=== PATIENT | male | born 1960 | race Caucasian/White ===

== ENCOUNTER → 2021-01-14 | Outpatient (CLI) | payer OTHER ==
[2021-01-14 12:01] LABS: Hematocrit 48.5 % (37.0-53.0); Hemoglobin 16.4 g/dL (13.5-17.5); Mean Corpuscular HGB 28.9 pg (26.0-34.0); Mean Corpuscular HGB Conc 33.8 g/dL (31.5-36.5); Mean Corpuscular Volume 85 fL (80-100); Mean Platelet Volume 9.8 fL (9.1-12.4); Platelet Count 248 K/mm3 (150-400); RDW Coefficient Variation 13.5 % (11.7-14.2); RDW Standard Deviation 42.1 fL (35.1-46.3); Red Blood Cell Count 5.68 M/mm3 (4.30-5.90); White Blood Cell Count 5.68 K/mm3 (4.00-11.30)
[2021-01-14 12:51] LABS: BAND PERCENT MAN 8 % (0-8); BASOPHILS ABSOLUTE MAN 0.05 K/mm3 (0.00-0.23); BASOPHILS PERCENT MAN 1 % (0-2); EOSINOPHILS ABSOLUTE MAN 0.11 K/mm3 (0.00-0.68); EOSINOPHILS PERCENT MAN 2 % (0-6); LYMPHOCYTES ABSOLUTE MAN 0.96 K/mm3 (0.84-5.20); LYMPHOCYTES PERCENT MAN 17 % (21-46); MONOCYTES ABSOLUTE MAN 0.39 K/mm3 (0.16-1.47); MONOCYTES PERCENT MAN 7 % (4-13); NEUTROPHILS ABSOLUTE MAN 4.14 K/mm3 (1.96-9.15); SEG NEUTROPHILS PERCENT MAN 65 % (41-73); TOTAL CELLS COUNTED 100
[2021-01-14 12:55] LABS: Alanine Aminotransfer (ALT/SGP 195 U/L (12-78); Albumin, Blood 2.5 g/dL (3.4-5.0); Albumin/Globulin Ratio 0.5 (0.8-1.8); Alk Phos 84 U/L (50-136); Anion Gap 6 mmol/L (6-16); Aspartate Aminotrans (AST/SGOT 136 U/L (12-37); Bilirubin, Total 0.9 mg/dL (0.1-1.0); Blood Urea Nitrogen 20 mg/dL (8-24); Bun/Creatinine Ratio 16.9 (12.0-20.0); CO2, Blood 28 mmol/L (21-32); Chloride, Blood 97 mmol/L (98-108); Creatinine, Blood 1.18 mg/dL (0.60-1.20); Globulin, Blood 4.7 g/dL (2.2-4.0); Glomerular Filtration Rate >60 (60-); Glucose, Blood 106 mg/dL (70-99); Potassium, Blood 3.9 mmol/L (3.5-5.5); Sodium, Blood 131 mmol/L (136-145); Total Protein, Blood 7.2 g/dL (6.4-8.2); Troponin I <0.015 ng/mL (0.000-0.040)
[2021-01-15 08:11] LABS: HBSAG SCREEN Negative (Negative); HEP A AB, IGM Negative (Negative); HEP B CORE AB, IGM Negative (Negative); HEP C VIRUS AB <0.1 (0.0-0.9)
== END | disposition home or self-care (01) ==
LOC: LAB SHORT 11:57
PROVIDERS: Physician Assistant
DX: R07.9 Chest pain, unspecified (principal); R94.5 Abnormal results of liver function studies
CPT/HCPCS: 80053; 80074; 83690; 84484; 85025

== ENCOUNTER 2025-06-03 15:47 | Inpatient (IN) | payer OTHER ==
[2025-06-03] VITALS (32 sets, daily range): BP systolic 75–96; BP diastolic 48–67
[~2025-06-03] VITALS: Ht 188 cm; Wt 67.3 kg
[2025-06-03] MEDS ORDERED: Ondansetron HCl 2 MG / ML 2ML Vial IV PRN (18:50)
[2025-06-03] MEDS ORDERED: FLU VACC TS2025-26(6MOS UP)/PF 45 MCG/0.5 ML SYRINGE IM SCH (18:50)
[2025-06-03] MEDS ORDERED: NS 1,000 ML IV SCH ×3 (19:00→20:55)
[2025-06-03] MEDS ORDERED: Piperacillin/Tazobactam Sod 4.5 GM in NS 100 ML IV ONE (19:15)
[2025-06-03] MEDS ORDERED: Albumin (Human) 25gm/100ml 100 ML IV ONE (19:15)
[2025-06-03 19:23] LABS: Hematocrit 20.1 % (37.0-53.0); Hemoglobin 6.2 g/dL (13.5-17.5)
[2025-06-03 19:32] LABS: IMMATURE RETIC FRACTION 15.1 % (2.3-16.0); RETIC HGB EQUIVALENT 29.6 pg (28.20-36.60); RETICULOCYTE ABSOLUTE 0.0345 M/mm3 (0.0200-0.1100); RETICULOCYTE COUNT PERCENT 1.45 % (0.50-2.50)
[2025-06-03 20:01] LABS: Prothrombin Time Results 15.1 Sec (9.7-11.5)
[2025-06-03 20:15] LABS: Ferritin, Serum 874.0 ng/mL (26-388); Total Iron Binding Capacity 166.0 ug/dL (250-450)
[2025-06-03 20:17] LABS: Magnesium, Blood 2.0 mg/dL (1.6-2.4); Phosphorus, Blood 2.0 mg/dL (2.5-4.9)
[2025-06-03] MEDS ORDERED: NS 500 ML IV SCH (20:20)
[2025-06-03 20:42] LABS: Influenza A, PCR NEGATIVE (NEGATIVE); Influenza B, PCR NEGATIVE (NEGATIVE); Resp Syncytial Virus, PCR NEGATIVE (NEGATIVE); SARS-Cov-2 (COVID-19) PCR, MMC NEGATIVE (NEGATIVE)
[2025-06-04] VITALS (61 sets, daily range): BP systolic 84–102; BP diastolic 51–71
[2025-06-04] MEDS ORDERED: Piperacillin/Tazobactam Sod 4.5 GM in NS 100 ML IV SCH (00:19)
[2025-06-04 00:58] LABS: Hematocrit 22.5 % (37.0-53.0); Hemoglobin 7.0 g/dL (13.5-17.5)
[2025-06-04 03:25] LABS: BASOPHILS ABSOLUTE AUTO 0.03 K/mm3 (0.00-0.23); BASOPHILS PERCENT AUTO 1 % (0-2); EOSINOPHILS ABSOLUTE AUTO 0.04 K/mm3 (0.00-0.68); EOSINOPHILS PERCENT AUTO 1 % (0-6); Hematocrit 21.3 % (37.0-53.0); Hemoglobin 6.7 g/dL (13.5-17.5); Mean Corpuscular HGB Conc 31.5 g/dL (31.5-36.5); Mean Corpuscular Volume 84 fL (80-100); NRBC ABSOLUTE 0.00 K/mm3 (0.00-0.02); NRBC Auto 0.0 /100 WBC (0.0-0.2); Platelet Count 59 K/mm3 (150-400); RDW Coefficient Variation 18.8 % (11.7-14.2); RDW Standard Deviation 57.0 fL (35.1-46.3)
[2025-06-04 03:29] LABS: IMMATURE GRAN ABSOLUTE AUTO 0.04 K/mm3 (0.00-0.10); IMMATURE GRAN PERCENT AUTO 1 % (0-1); LYMPHOCYTES ABSOLUTE AUTO 1.28 K/mm3 (0.84-5.20); LYMPHOCYTES PERCENT AUTO 29 % (21-46); MONOCYTES ABSOLUTE AUTO 0.20 K/mm3 (0.16-1.47); MONOCYTES PERCENT AUTO 5 % (4-13); NEUTROPHILS ABSOLUTE AUTO 2.86 K/mm3 (1.96-9.15); NEUTROPHILS PERCENT AUTO 64 % (41-73)
[2025-06-04 03:39] LABS: Alanine Aminotransfer (ALT/SGP 13.0 U/L (12-78); Albumin, Blood 1.9 g/dL (3.4-5.0); Albumin/Globulin Ratio 0.5 (0.8-1.8); Anion Gap 14.0 mmol/L (3-11); Aspartate Aminotrans (AST/SGOT 177.0 U/L (12-37); Bilirubin, Total 2.2 mg/dL (0.1-1.0); Blood Urea Nitrogen 19.0 mg/dL (8-24); CO2, Blood 22.0 mmol/L (21-32); Calcium, Blood 7.9 mg/dL (8.5-10.1); Chloride, Blood 100.0 mmol/L (98-108); Creatinine, Blood 0.75 mg/dL (0.60-1.20); Globulin, Blood 3.6 g/dL (2.2-4.0); Glucose, Blood 78.0 mg/dL (70-99); Potassium, Blood 3.6 mmol/L (3.5-5.5); Sodium, Blood 132.0 mmol/L (136-145); Total Protein, Blood 5.5 g/dL (6.4-8.2)
--- NOTE | 2025-06-04 06:02 | NUR ---
SHIFT SUMMARY: PT CAME TO THE ICU RATHER THAN PCU DUE TO LOW BLOOD PRESSURES. PT BLOOD PRESSURE REMAINS SOFT BUT MAPS ARE ABOVE 65. HR IN 80S, SINUS. PT HAS NOT EXHIBITED ANY RESPIRATORY DISTRESS OR DYSPNEA, SPO2 HAS BEEN >95% AND PT REMAINS ON ROOM AIR. HE HAS A PERSISTENT COUGH, SOME BLOOD NOTED IN SPUTUM. PT DENIES PAIN, EDORSES FATIGUE JUST FEELING GENERALLY UNWELL. REMAINS A&OX4 RESPONDS APPROPRIATELY AND MAKES NEEDS KNOWN.
[2025-06-04 09:22] LABS: Hematocrit 24.1 % (37.0-53.0); Hemoglobin 7.7 g/dL (13.5-17.5)
[2025-06-04 10:30] LABS: Prothrombin Time Results 15.1 Sec (9.7-11.5)
[2025-06-04 11:07] LABS: Automated BF WBC Count 0.066 K/mm3 (0-999)
[2025-06-04 11:38] LABS: Glucose, Body Fluid 83 mg/dL
[2025-06-04 11:42] LABS: Lactate Dehydrogenase, Body Fl 187 U/L
[2025-06-04 11:43] LABS: Albumin, Body Fluid 0.7 g/dL
[2025-06-04 12:00] LABS: RBC Count, Body Fluid 57 /mm3 (0-0)
[2025-06-04 12:19] LABS: Lymphocytes, Fluid 9.0 % (0.0-18.0); Monocytes/Mononuclear, Fluid 79.0 % (0.0-50.0); Neutrophils, Fluid 6.0 % (0.0-25.0); Total Cell Count, Body Fluid 100
[2025-06-04 12:20] LABS: Color, Body Fluid L Yellow (None-Yellow)
[2025-06-04 14:08] LABS: Source, Urine Clean Catch
[2025-06-04] MEDS ORDERED: NS 1,000 ML IV SCH (14:20)
[2025-06-04 14:42] LABS: Color, Urine Amber (P-Yellow); Glucose Qualitative, Urine Neg (Neg); Ketones, Urine 2+ (Neg); Leukocyte Esterase, Urine 1+ (Neg); Protein, Urine 2+ (Neg); Specific Gravity, Urine 1.015 (1.003-1.022); Urobilinogen, Urine 2+ (Normal)
[2025-06-04 15:24] LABS: Bilirubin, Urine 1+ (Neg)
[2025-06-04] MEDS ORDERED: Petrolatum/Mineral Oil/Lanolin 1 APPLIC/50 GM Tube TOP PRN (15:45)
--- NOTE | 2025-06-04 17:09 | NUR ---
SPOKE WITH PT'S NEPHEW KAREEM. HE STATES HE WAS TOLD BY THE PATIENT'S DAUGHTER THAT THE PROGNOSIS IS "SERIOUS". HE STATES HE'S COMING TO SEE PT TOMORROW AROUND NOON, AND ASKED THAT THIS PC RN BE PRESENT FOR GOALS OF CARE.
--- NOTE | 2025-06-04 17:36 | NUR ---
SHIFT SUMMARY PT A&OX4 T/O SHIFT. PT FOLLOWS COMMANDS, ANSWERS QUESTIONS APPROPRIATELY, AND USES CALL LIGHT TO MAKES NEEDS KNOWN. PT IS ON RA, SPO2>92%. PT LUNG SOUNDS COARSE T/O, ATELECTASIS IN BLL. PLEURAL EFFUSION GREATER IN LLL, THORACENTESIS PERFORMED APPROX AT 1030 WITH OUPUT OF 300MLS. PUNCTURE SIGHT ON LEFT SIDE POSTERIOR BACK, BANDAGE IN PLACE AND WNL. PT HAS OCCASIONAL PRODUCTIVE COUGH, MODERATE AMOUNT OF BROWN/BLOOD-TINGED SPUTUM. PT IN NSR WITH PVCS, MAP 63-70S, SBP 88-90S MAJORITY OF SHIFT. NEW RX OF MIDODRINE STARTED TODAY AT 1300. PT DENIES ABD PAIN, NO BOWEL MOVEMENT TODAY. PT VOIDS INTO URINAL. PT HAS SCATTERED INJURIES ON R KNEE/ROUSE AND ELBOW D/T FALL PREVIOUS FROM ADMISSION. PHOTOS IN CHART. BLOOD PRODUCT FINISHED THIS AM, REPEAT H&H IMPROVED. DISCUSSED CT FINDINGS WITH PT THIS AM, PALLIATIVE AND CARE MANAGEMENT CONSULTED. DAUGHTER AT BEDSIDE, PT DOES NOT WANT TO SHARE DETAILS ABOUT MEDICAL STATUS, OKAY WITH SAYING THAT "THEY ARE STILL RUNNING TESTS AND NOTHING IS CONCLUSIVE AT THIS POINT." CALL LIGHT WITHIN REACH WITH NO NEEDS EXPRESSED AT THIS TIME.
--- NOTE | 2025-06-04 19:42 | NUR ---
ASSUMPTION OF CARE: ASSUMED CARE OF PT AT 1910. PT ALERT AND ORIENTED TO ALL. FOLLOWS DIRECTION AND MAKES NEEDS KNOWN ALTHOUGH WEAK T/O. PT ON RA WITH SPO2 >94% DENIES SOB. LUNGS CLEAR/DIM T/O. INTERMITTENT COUGH NOTED. ON ELECTRICAL PLUMBING SUPERVISOR. SR WITH HR 80'S WITH FREQUENT PVC'S. SBP 80'S, WITH MAP >65. DENIES CP. ABLE TO TOLERATE PO INTAKE ALTHOUGH HAS DECREASED APPETITE. USES THE URINAL IND, MINIMAL URINE OUTPUT STATED FROM DAYSHIFT RN. NS AT 75 ML/HR THROUGH RAC PIV. LAC/LH PIV INTACT AND SALINE LOCKED. PT MOVING AROUND NEEDED IN BED WITH MINIMAL ASSIST. BED LOCKED, CALL LIGHT IN REACH.
[2025-06-05] VITALS (37 sets, daily range): BP systolic 85–107; BP diastolic 40–94
--- NOTE | 2025-06-05 02:19 | NUR ---
ASSUMED CARE OF PATIENT. PATIENT IS ALERT AND ORIENTED X4. ABLE TO ASSIST WITH TURNING. LS CLEAR TO DIMINISHED, SP02 100% ON RA, DENIES SOB. HR SR 79, FREQUENT PVCs, BP STABLE. DENIES CP/PRESSURE. PATIENT ABLE TO USE URINAL. ASSISTED WITH TURNS. CALL LIGHT IN REACH
[2025-06-05 03:47] LABS: BASOPHILS ABSOLUTE AUTO 0.06 K/mm3 (0.00-0.23); BASOPHILS PERCENT AUTO 1 % (0-2); EOSINOPHILS ABSOLUTE AUTO 0.06 K/mm3 (0.00-0.68); EOSINOPHILS PERCENT AUTO 1 % (0-6); Hematocrit 27.2 % (37.0-53.0); Hemoglobin 8.4 g/dL (13.5-17.5); Mean Corpuscular HGB Conc 30.9 g/dL (31.5-36.5); Mean Corpuscular Volume 88 fL (80-100); NRBC ABSOLUTE 0.04 K/mm3 (0.00-0.02); NRBC Auto 0.7 /100 WBC (0.0-0.2); Platelet Count 52 K/mm3 (150-400); RDW Coefficient Variation 19.8 % (11.7-14.2); RDW Standard Deviation 63.2 fL (35.1-46.3)
[2025-06-05 03:48] LABS: IMMATURE GRAN ABSOLUTE AUTO 0.07 K/mm3 (0.00-0.10); IMMATURE GRAN PERCENT AUTO 1 % (0-1); LYMPHOCYTES ABSOLUTE AUTO 1.55 K/mm3 (0.84-5.20); LYMPHOCYTES PERCENT AUTO 29 % (21-46); MONOCYTES ABSOLUTE AUTO 0.49 K/mm3 (0.16-1.47); MONOCYTES PERCENT AUTO 9 % (4-13); NEUTROPHILS ABSOLUTE AUTO 3.20 K/mm3 (1.96-9.15); NEUTROPHILS PERCENT AUTO 59 % (41-73)
[2025-06-05 04:04] LABS: Alanine Aminotransfer (ALT/SGP 12.0 U/L (12-78); Albumin, Blood 1.8 g/dL (3.4-5.0); Albumin/Globulin Ratio 0.4 (0.8-1.8); Anion Gap 17.0 mmol/L (3-11); Aspartate Aminotrans (AST/SGOT 191.0 U/L (12-37); Bilirubin, Total 2.2 mg/dL (0.1-1.0); Blood Urea Nitrogen 19.0 mg/dL (8-24); CO2, Blood 18.0 mmol/L (21-32); Calcium, Blood 8.4 mg/dL (8.5-10.1); Chloride, Blood 101.0 mmol/L (98-108); Creatinine, Blood 0.92 mg/dL (0.60-1.20); Globulin, Blood 4.1 g/dL (2.2-4.0); Glucose, Blood 72.0 mg/dL (70-99); Potassium, Blood 3.5 mmol/L (3.5-5.5); Sodium, Blood 132.0 mmol/L (136-145); Total Protein, Blood 5.9 g/dL (6.4-8.2)
--- NOTE | 2025-06-05 06:05 | NUR ---
SHIFT SUMMARY NO ACUTE CHANGES SINCE ASSUMING CARE OF PATIENT. REMAINS ALERT AND ORIENTED X4. SP02 98% ON RA. HR SR 70s WITH FREQUENT PVCs. BP STABLE DENIES CP/PRESSURE. REPOSITIONED Q2 HOURS. PATIENT ABLE TO USE URINAL. CALL LIGHT IN REACH
--- NOTE | 2025-06-05 07:22 | NUR ---
ASSUMPTION OF CARE RECEIVED REPORT FROM [facility] NURSE. PT IS A&OX4, FOLLOWS COMMANDS AND ANSWERS QUESTIONS APPROPRIATELY. PT IS ON RA, SPO2>92%. PT IN NSR WITH FREQUENT PVCS. MAP >65. SBP IN 90S. PT REPORTS NAUSEA WHEN ATTEMPTING TO EAT, PRN MEDS IN EMAR. PT VOIDS INTO URINAL. PT HAS THREE PIVS, WNL. PT HAS CALL LIGHT WITHIN REACH AND NO NEEDS EXPRESSED AT THIS TIME.
[2025-06-05] MEDS ORDERED: Lidocaine 2% Viscous Soln 20 ML,Nystatin 100,000 Unit/ml Susp 20 ML,Mag Hydrox/Al Hydro... MT PRN (08:55)
[2025-06-05] MEDS ORDERED: Albumin (Human) 25gm/100ml 100 ML IV SCH (09:00)
[2025-06-05] MEDS ORDERED: Metoclopramide HCl 5MG / ML 2ML Vial IV PRN (09:00)
[2025-06-05] MEDS ORDERED: Multivitamins 1 Tab PO SCH (16:20)
[2025-06-05] MEDS ORDERED: Furosemide 10 MG / ML 2ML Vial IV SCH (17:00)
--- NOTE | 2025-06-05 18:10 | NUR ---
SHIFT SUMMARY PT IS A&OX4 T/O SHIFT, ANSWERS QUESTIONS AND USES CALL LIGHT APPROPRIATELY. PT ON RA, SPO2>92%. DIMINISHED COARSE BILATERAL LOWER LOBES. PT DENIES SOB BUT NO IMPROVEMENTS AFTER THORACENTESIS ON 06/04. PT COUGHING OCCASIONALLY WITH MODERATE AMOUNTS OF SPUTUM, BROWN/BLOOD-TINGED. PT HR IN 70-90S T/O SHIFT, MAP >65 WITH SBP IN 90-100S MAJORITY OF SHIFT. PT DENIES CHEST PAIN/PRESSURE T/O SHIFT. PT REPORTED NAUSEA T/O SHIFT, PRN MEDS IN EMAR. PT HAD NO SOLID FOOD INTAKE TODAY, HOP TRAINER CONSULTED. PT DRANK SOME CLEAR LIQUID ENSURE. MILD ASCITES IN ABD. PT USES URINAL TO VOID. PT HAS +2 EDEMA IN BLL AND BILATERAL THIGHS/HIPS. INCREASED JVD AT 1600. REPEAT LACTIC ACID WAS 6.4, DR NOTIFIED. REPEAT LABS IN AM PER . PT HAS PREVENTATIVE MEPILEXUS ON SPINE AND COCCYX D/T BLANCHABLE REDNESS AND CACHEXIA. PT NOTIFIED THAT NEPHEW, "BLUE" WAS ALLOWED MEDICAL INFORMATION BUT NO ONE ELSE. OTHER FAMILY WAS TO BE TOLD THAT THEY ARE STILL RUNNING TESTS AT THIS TIME. CALL LIGHT WITHIN REACH WITH NO NEEDS EXPRESSED AT THIS TIME. PT PLANS TO HAVE FAMILY MEETING WITH FAMILY ONCE DAUGHTER FROM [place] ARRIVES INTO [facility], PT CONTACTED HER UNSURE OF EXACT TIME/DATE OF HER ARRIVAL.
--- NOTE | 2025-06-05 21:07 | NUR ---
ASSUMPTION OF CARE: ASSUMED CARE AT START OF SHIFT (1899). REPORT RECEIVED FROM DAY SHIFT RN. PT IS DOING WELL AND RESTING IN BED. PT IS ALER AND FOLLOWING COMMANDS. PT DENIES ANY PAIN, CP, OR SOB AT THIS TIME. LUNG SOUNDS ARE COARSE, ON RA WITH SPO2 >95%. SINUS RYTHM, SBP:90-100'S MAP >65 HR:90'S. IV: PERIPHERAL IN LAC, RAC, L HAND. PI ABLE TO STAND VIA 2-PERSON ASSIT AND USE BEDSIDE COMMODE. LINES AND CORDS PLACED OUT OG REACH. CALL LIGHT PLACED WITHIN REACH.
[2025-06-06] VITALS (30 sets, daily range): BP systolic 85–116; BP diastolic 56–82
[2025-06-06 06:01] LABS: Hematocrit 24.6 % (37.0-53.0); Hemoglobin 7.8 g/dL (13.5-17.5); Mean Corpuscular HGB Conc 31.7 g/dL (31.5-36.5); Mean Corpuscular Volume 86 fL (80-100); NRBC ABSOLUTE 0.05 K/mm3 (0.00-0.02); NRBC Auto 0.8 /100 WBC (0.0-0.2); RDW Coefficient Variation 19.9 % (11.7-14.2); RDW Standard Deviation 61.8 fL (35.1-46.3)
[2025-06-06 06:24] LABS: Platelet Count 45 K/mm3 (150-400)
[2025-06-06 06:25] LABS: Alanine Aminotransfer (ALT/SGP 19.0 U/L (12-78); Albumin, Blood 2.2 g/dL (3.4-5.0); Albumin/Globulin Ratio 0.6 (0.8-1.8); Anion Gap 16.0 mmol/L (3-11); Aspartate Aminotrans (AST/SGOT 282.0 U/L (12-37); Bilirubin, Total 2.6 mg/dL (0.1-1.0); Blood Urea Nitrogen 22.0 mg/dL (8-24); CO2, Blood 18.0 mmol/L (21-32); Calcium, Blood 8.2 mg/dL (8.5-10.1); Chloride, Blood 102.0 mmol/L (98-108); Creatinine, Blood 1.0 mg/dL (0.60-1.20); Globulin, Blood 3.6 g/dL (2.2-4.0); Glucose, Blood 78.0 mg/dL (70-99); Magnesium, Blood 2.1 mg/dL (1.6-2.4); Phosphorus, Blood 2.2 mg/dL (2.5-4.9); Potassium, Blood 3.6 mmol/L (3.5-5.5); Sodium, Blood 132.0 mmol/L (136-145); Total Protein, Blood 5.8 g/dL (6.4-8.2)
--- NOTE | 2025-06-06 06:32 | NUR ---
SHIFT SUMMARY: PT IS DOING WELL AND RESTING IN BED. PT WAS ABLE TO SLEEP MOST OF THE NIGHT. VITAL SIGNS REMAIN STABLE. PT HAS OCCASIONAL COUGHING EPISODE AND IS PRODUCING BLOOD TINGED SPUTUM. DURING THE SHIFT PT WAS CALLING TO USE URINAL EVERY HOUR BUT WAS ONLY ABLE TO BETWEEN 10-25 ML URINE EACH TIME. BLADDER SCAN PERFORMED AND PT WAS RETAINING ABOUT 650ML URINE. CATHETER WAS PLACED AND 700ML URINE OUTPUT BEFORE PT REQUESTED TO HAVE CATHETER REMOVED. LINES AND CORDS PLACED OUT OF REACH. CALL LIGHT PLACED WITHIN REACH.
[2025-06-06 07:44] LABS: BASOPHILS ABSOLUTE MAN 0.00 K/mm3 (0.00-0.23); BASOPHILS PERCENT MAN 0 % (0-2); EOSINOPHILS ABSOLUTE MAN 0.00 K/mm3 (0.00-0.68); EOSINOPHILS PERCENT MAN 0 % (0-6); LYMPHOCYTES ABSOLUTE MAN 1.90 K/mm3 (0.84-5.20); LYMPHOCYTES PERCENT MAN 31 % (21-46); MONOCYTES ABSOLUTE MAN 0.18 K/mm3 (0.16-1.47); MONOCYTES PERCENT MAN 3 % (4-13); NEUTROPHILS ABSOLUTE MAN 4.05 K/mm3 (1.96-9.15); SEG NEUTROPHILS PERCENT MAN 66 % (41-73)
[2025-06-06] MEDS ORDERED: Albumin (Human) 25gm/100ml 100 ML IV SCH (09:00)
[2025-06-06] MEDS ORDERED: Zinc Sulfate 220 MG Cap (Provides 50MG) PO SCH (09:00)
--- NOTE | 2025-06-06 12:48 | NUR ---
PT TRANSFERRING TO MEDICAL FLOOR RM [id number]. REPORT GIVEN TO BARBARA BATISTA. NEURO: A/O X4, ABLE TO MAKE HIS NEEDS KNOWN AND CALLS APPROPRIATELY. PULM: VERY DIM IN BASES JACKIE CRACKLES IN LLL THIS AM CARDIAC: SR W/ PVCS. SBP 86-110S, HR 70-80S. LASIX ADMINISTRATION DELAYED DUE TO HYPOTENSION. MIDODRINE AND ALBUMIN EFFECTIVLY INCREASED SBP AND LASIX ADMINISTED. GI: SMALL BM YESTERDAY, MILD ABDOMINAL DISTENTION. SOME MILD TENDERNESS LUQ WITH PALPATION. : URINARY RETENTION OVER NIGHT. BLADDER SCAN THIS AM 129. USING URINAL, NEEDS ASSISTANCE WITH SET UP. SKIN: NO CHANGES, MEPLIEX IN PLACE TO MID SPINE ABRASION. PREVENTATIVE MEPLIED TO COCCYX. SCATTERED ECCYMOSIS TO BLE. MILD BLANCHABLE REDNESS TO GLUTEAL CLEFT. FAMILY INTO VISIT THIS AM D/C PLAN: PLANNING FOR FAMILY MEETING ON SAT ALL FAMILY WILL ATTEND. PALLATIVE CARE CONFIRMED THEY ARE AWARE. BLADDER SCAN COMPLETED THIS AM FOR URINARY RETENTION
--- NOTE | 2025-06-06 17:22 | NUR ---
PALLIATIVE CARE VISIT: REQUEST FROM PRIMARY RN TO DISCUSS CODE STATUS WITH PT. PER RN PT STATES HE WOULD WANT ONE ROUND OF CPR. MET WITH PT IN HIS ROOM. PT IS A/O X 4 AND AGREEABLE TO VISIT. EDUCATED PT ON CPR VS DNR MEASURES. THE RISKS WITH CPR. CONFIRMED PT WOULD WANT INTUBATION IF NECESSARY. PT STATES HE WOULD WANT FULL MEASURES BUT NOT TO ONLY DO ONE ROUND OF CPR. PT TO REMAIN A FULL CODE. DISCUSSED SYMPTOMS. PT STATES HE HAS PAIN TO HIS LEFT SIDE OF ABD FROM A RIB FX. PT DENIES ANY OTHER PAIN. PT STATES HE DOES NOT WANT TO TAKE TYLENOL, IBU OR ANY NARCOTIC AT THIS TIME. HE IS AGREEABLE TO TRYING A LIDOCAINE PATCH. PT STATES NAUSEA IS MANAGED WITH CURRENT MEDICATIONS. DENIES SOB, ANXIETY, DOES REPORT DECREASED APPETITE BUT DOES NOT WANT ANY INTERVENTION FOR THIS. SPOKE TO DR. CALVIN AND SHE GAVE ORDER FOR LIDOCAINE PATCH DAILY. ORDER PLACED. UPDATED PRIMARY RN. delayed entry
--- NOTE | 2025-06-06 18:39 | NUR ---
SPOKE TO DR CALVIN- PT REMAINS A FULL CODE HE CLEARLY STATES HE WANTS STAFF TO DO "ONE ROUND OF CPR. IF THAT DOESN'T WORK THEN IT'S DONE." PT HAS HAD VERY LOW BP'S AND HAS IV LASIX ORDERED. ASKED FOR PARAMETERS THE PT SBP HAS NOT BEEN OVER 100 SINCE HE TRANSFERED TO MEDICAL FLOOR. ORDER RECIEVED TO DC THE LASIX FOR NOW.
[2025-06-06] MEDS ORDERED: Piperacillin/Tazobactam Sod 4.5 GM in NS 100 ML IV SCH (19:00)
--- NOTE | 2025-06-06 19:33 | NUR ---
SHIFT SUMMARY- PT TRANSFERED TO MEDICAL FLOOR FROM ICU. SPOKE TO DR CALVIN SEVERAL TIMES. THE PLAN IS FOR THE PT TO HAVE A FAMILY MEETING ON TUESDAY. HE DOES NOT WANT ANY INFO GIVEN TO FAMILY WITH THE EXCEPTION OF HIS DAUGHTER AND HIS NEPHEW KAREEM. PASSED ON IN BEDSIDE REPORT TO NIGHT RN. PT AND THIS RN SPOKE ABOUT HIS WISHES IN THE EVENT THAT HE SHOULD STOP BREATHING OR HIS HEART SHOULD STOP. THE PT REQUESTS THAT STAFF PROVIDE "1 ROUND OF CPR, IF THAT'S NOT WORKING IT'S OVER." NIGHT RN AWARE OF THE PT WISHES FOR PRIVACY AND CPR. PT WAS READJUSTED IN BED AT THE TIME OF BEDSIDE REPORT. NO CURRENT S&S OF DISTRESS NOTED.
--- NOTE | 2025-06-06 21:50 | NUR ---
During shift report PT made it known to the LN and that he did want CPR attempted but only for one round. when asked to clairify understanding of one round of CPR. he was able to state that he was informed that a round of CPR was about 2 minutes of compressions.
[2025-06-07 03:54] VITALS: BP 93/62
[2025-06-07 05:16] LABS: Alanine Aminotransfer (ALT/SGP 25.0 U/L (12-78); Albumin, Blood 2.5 g/dL (3.4-5.0); Albumin/Globulin Ratio 0.7 (0.8-1.8); Anion Gap 17.0 mmol/L (3-11); Aspartate Aminotrans (AST/SGOT 398.0 U/L (12-37); Bilirubin, Total 3.1 mg/dL (0.1-1.0); Blood Urea Nitrogen 23.0 mg/dL (8-24); CO2, Blood 19.0 mmol/L (21-32); Calcium, Blood 8.7 mg/dL (8.5-10.1); Chloride, Blood 103.0 mmol/L (98-108); Creatinine, Blood 1.06 mg/dL (0.60-1.20); Globulin, Blood 3.6 g/dL (2.2-4.0); Glucose, Blood 65.0 mg/dL (70-99); Magnesium, Blood 2.1 mg/dL (1.6-2.4); Phosphorus, Blood 2.0 mg/dL (2.5-4.9); Potassium, Blood 3.5 mmol/L (3.5-5.5); Sodium, Blood 135.0 mmol/L (136-145); Total Protein, Blood 6.1 g/dL (6.4-8.2)
--- NOTE | 2025-06-07 06:21 | NUR ---
SHIFT SUMMARY: Pt is admitted for hypotension and is a full code. Is alert and able to make needs known. ADLs have been 1p but did not get out of bed. Denies pain or discomfort when asked.
[2025-06-07 07:14] VITALS: BP 88/59
[2025-06-07 08:13] LABS: Hematocrit 28.1 % (37.0-53.0); Hemoglobin 8.8 g/dL (13.5-17.5); Mean Corpuscular HGB Conc 31.3 g/dL (31.5-36.5); Mean Corpuscular Volume 87 fL (80-100); NRBC ABSOLUTE 0.07 K/mm3 (0.00-0.02); NRBC Auto 0.9 /100 WBC (0.0-0.2); RDW Coefficient Variation 20.2 % (11.7-14.2); RDW Standard Deviation 62.6 fL (35.1-46.3)
[2025-06-07 09:16] LABS: BASOPHILS ABSOLUTE MAN 0.00 K/mm3 (0.00-0.23); BASOPHILS PERCENT MAN 0 % (0-2); EOSINOPHILS ABSOLUTE MAN 0.00 K/mm3 (0.00-0.68); EOSINOPHILS PERCENT MAN 0 % (0-6); LYMPHOCYTES ABSOLUTE MAN 2.11 K/mm3 (0.84-5.20); LYMPHOCYTES PERCENT MAN 28 % (21-46); MONOCYTES ABSOLUTE MAN 0.37 K/mm3 (0.16-1.47); MONOCYTES PERCENT MAN 5 % (4-13); NEUTROPHILS ABSOLUTE MAN 5.06 K/mm3 (1.96-9.15); Platelet Count 23 K/mm3 (150-400); SEG NEUTROPHILS PERCENT MAN 67 % (41-73)
[2025-06-07] MEDS ORDERED: NS 250 ML IV PRN (11:05)
[2025-06-07 11:57] VITALS: BP 92/63
--- NOTE | 2025-06-07 12:45 | NUR ---
RN NOTE MR LAURA DID NOT EAT BREAKFAST. ENCOURAGED TO SIP ON PROTEIN DRINK OR TAKE A FEW SPOONS OF FOOD BUT HE DID NOT EAT. HE HAS MOUTH SORES, GIVEN SWISH AND SWALLOW MOUTH WASH. HE TAKES ORAL MEDS VERY SLOWLY ONE AT A TIME. UP TO THE HAIR THIS MORNING, HE WAS ABLE TO TRANSFER BACK TO BED WITH MINIMAL ASSISTANCE. ASSISTED TO TURN AND REPOSITION IN BED. EDUCATED ON PRESSURE RELIEF. HIS COCCYX IS RED, MEPILEX REPLACED. SMALL 1CM ROUND SORE ON SPINE WITH PINKNESS AROUND IT, MEPILEX REPLACED OVER IT. LOW VOLUME MUMBLED VOICE.
--- NOTE | 2025-06-07 15:58 | NUR ---
Shift Summary Mr Tuttle has quiet mumbled speach, orientated x4, appropriate conversation. He has eaten and drank very little this shift. He has been encouraged, offered alternatives, but has a very poor appetite. Intake discussed with pt, director pediatric and Dr Sorensen. He denies nausea, does have poor dentition and mouth tenderness, has S&S and soft foods. Low volume UOP. Up to chair today, generally weak but he was able to transfer with minimal assistance. Bed low, call light in reach.
[2025-06-07 16:10] VITALS: BP 92/71
[2025-06-07 19:39] VITALS: BP 95/65
[2025-06-07 22:47] VITALS: BP 89/59
--- NOTE | 2025-06-08 00:45 | NUR ---
PROVIDER CONTACT PT'S BLADDER SCAN WAS 625 ML. PT REFUSED FURTHER ATTEMPTS TO VOID, SAYING "NO, I JUST PEED." PT EDUCATED ON NEED FOR STRAIGHT CATH TO HELP EMPTY BLADDER. PT VERBALIZED UNDERSTANDING TO EDUCATION, BUT REFUSED TO BE CATHETERIZED. DR HELM NOTIFIED VIA IN PERSON CONVERSATION. NO FURTHER ORDERS RECEIVED AT THIS TIME, EXCEPT TO CONTINUE TO MONITOR.
[2025-06-08 04:07] VITALS: BP 86/60
[2025-06-08 06:32] LABS: Anion Gap 20.0 mmol/L (3-11); Blood Urea Nitrogen 28.0 mg/dL (8-24); CO2, Blood 14.0 mmol/L (21-32); Calcium, Blood 8.6 mg/dL (8.5-10.1); Chloride, Blood 103.0 mmol/L (98-108); Creatinine, Blood 1.28 mg/dL (0.60-1.20); Glucose, Blood 53.0 mg/dL (70-99); Magnesium, Blood 2.1 mg/dL (1.6-2.4); Phosphorus, Blood 2.7 mg/dL (2.5-4.9); Potassium, Blood 3.6 mmol/L (3.5-5.5); Sodium, Blood 133.0 mmol/L (136-145)
--- NOTE | 2025-06-08 06:49 | NUR ---
SENIOR SHAREPOINT DEVELOPER SUMMARY PT A&OX4, VSS. ABLE TO COMMUNICATE NEEDS EFFECTIVELY. PT HAS BEEN ASLEEP FOR MOST OF THE NIGHT. CHEST RISE/RESPIRATIONS NOTED. PRESSURES REMAIN SOFT. VEWS SCORE OF 3 ON 1ST VS CHECK OF SHIFT. PT AGREEABLE TO 1ST VS CHECK AFTER THAT, BUT REFUSED VS CHECKS Q2H X 3. VERBALIZED UNDERSTANDING TO EDUCATION, BUT STILL REFUSED. CONTINUES TO HAVE A WITHDRAWN AFFECT W/ A CONCRETE THOUGHT PROCESS. BLADDER SCAN 625 ML, DONE PER ORDER. PT REFUSED STRAIGHT CATH DESPITE VERBALIZING UNDERSTANDING TO EDUCATION. PROVIDER NOTIFIED, NO FURTHER ORDERS AT THIS TIME. SEE NOTE FOR DETAILS. BED RAILS UP X 2, BED IN LOWEST POSITION, BED WHEELS LOCKED, PERSONAL BELONGINGS AND CALL LIGHT WITHIN REACH FOR SAFETY.
--- NOTE | 2025-06-08 07:32 | NUR ---
MR IS CURRENTLY ATTEMPTING TO VOID. HE SAID HE IS NOT UNCOMFORTABLE WITH FULL BLADDER AT THE MOMENT AND THAT IF HE DOES NOT VOID HE WILL ALLOW STRAIGHT CATHETER AFTER THE FAMILY MEETING THIS MORNING. DR CALVIN NOTIFIED.
[2025-06-08 07:34] VITALS: BP 85/64
[2025-06-08 08:40] LABS: BASOPHILS ABSOLUTE AUTO 0.03 K/mm3 (0.00-0.23); BASOPHILS PERCENT AUTO 0 % (0-2); EOSINOPHILS ABSOLUTE AUTO 0.02 K/mm3 (0.00-0.68); EOSINOPHILS PERCENT AUTO 0 % (0-6); Hematocrit 25.6 % (37.0-53.0); Hemoglobin 7.5 g/dL (13.5-17.5); IMMATURE GRAN ABSOLUTE AUTO 0.10 K/mm3 (0.00-0.10); IMMATURE GRAN PERCENT AUTO 1 % (0-1); LYMPHOCYTES ABSOLUTE AUTO 1.50 K/mm3 (0.84-5.20); LYMPHOCYTES PERCENT AUTO 17 % (21-46); MONOCYTES ABSOLUTE AUTO 0.77 K/mm3 (0.16-1.47); MONOCYTES PERCENT AUTO 9 % (4-13); Mean Corpuscular HGB Conc 29.3 g/dL (31.5-36.5); NEUTROPHILS ABSOLUTE AUTO 6.21 K/mm3 (1.96-9.15); NEUTROPHILS PERCENT AUTO 72 % (41-73); NRBC ABSOLUTE 0.20 K/mm3 (0.00-0.02); NRBC Auto 2.3 /100 WBC (0.0-0.2); RDW Coefficient Variation 20.6 % (11.7-14.2); RDW Standard Deviation 68.5 fL (35.1-46.3)
[2025-06-08 09:00] LABS: Mean Corpuscular Volume 93 fL (80-100)
[2025-06-08 09:01] LABS: Platelet Count 17 K/mm3 (150-400)
--- NOTE | 2025-06-08 10:10 | NUR ---
GOALS OF CARE MEETING THIS AM, FAMILY, PHYSICIAN AND THIS PC RN PRESENT. 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 PT DECIDED TO CHANGE CODE STATUS TO DNR, AND AFTER DISCUSSION WITH FAMILY, PT STATES HE WISHES TO GO HOME WITH HOSPICE. PT HAS NO HEALTH INSURANCE, BUT WITH [facility] ASSISTANCE, HE HAS SIGNED UP WITH MEDICAID ([place]). THIS RN ASSISTED HIM WITH FILLING OUT FINANCIAL ASSISTANCE PAPERWORK FOR HOSPICE "[facility]." UNSURE WHERE TO TURN THE PAPERWORK IN. LEFT A MESSAGE FOR [facility]. CM ALSO UNSURE. CONTACTED [facility] FOR ADMISSION SLOT, AND TO FIND OUT THE REQUREMENTS FOR [facility]. PT REQUIRES PAYMENT ASSISTANCE.
[2025-06-08 13:12] VITALS: BP 84/56
--- NOTE | 2025-06-08 16:59 | NUR ---
Shift Summary Mr Tuttle has eaten very little today, a small amount of soup and some water. He has been offered protein drinks and meal trays but has very little appetite. He had 4 BMs today, large soft to smaller liquidy. He was incontinent of stool and has got up to the bedside commode/continent. He is weak requiring 2 staff support to get up out of the chair, but was able to tolerate being up in the chair for 2-3 hours. He allowed me to straight cath him at noon with 550cc UOP, other than that he has voided very small amounts. Mr Tuttle changed his status to DNR after the family meeting this morning, DNR bracelet in place. Bed low, call light in reach.
[2025-06-08 17:40] VITALS: BP 86/60
[2025-06-08 19:53] VITALS: BP 89/57
[2025-06-09 04:23] VITALS: BP 86/57
[2025-06-09 07:53] VITALS: BP 89/62
[2025-06-09 11:32] LABS: Anion Gap 19.0 mmol/L (3-11); Blood Urea Nitrogen 37.0 mg/dL (8-24); CO2, Blood 15.0 mmol/L (21-32); Calcium, Blood 8.9 mg/dL (8.5-10.1); Chloride, Blood 103.0 mmol/L (98-108); Creatinine, Blood 1.48 mg/dL (0.60-1.20); Glucose, Blood 44.0 mg/dL (70-99); Potassium, Blood 3.4 mmol/L (3.5-5.5); Sodium, Blood 134.0 mmol/L (136-145)
--- NOTE | 2025-06-09 11:51 | NUR ---
PT REQUESTS CHANGE TO COMFORT CARE, NO FURTHER LABS, BLOOD SUGAR CHECKS, ETC. PT IS DISCHARGING HOME WITH [facility] TOMORROW, PLANNING FOR NOON. CM UPDATED. BEDSIDE RN AWARE.
--- NOTE | 2025-06-09 13:07 | NUR ---
NOTE THIS RN RECEIVED CRITICAL LAB GLUCOSE OF 44 ON PT. PALLIATIVE CARE WITH THIS RN WHEN NOTIFICATION RECEIVED. THIS RN NOTIFIED DR. CALVIN. DR. CALVIN REPORTED "OFFER PT APPLEJUICE, POKING PT AGAIN NOT NEEDED BECAUSE PT GOING HOME ON HOSPICE." THIS RN RECEIVED COMFORT CARE ORDERS POST CRITICAL LAB. PT REPORTS ASYMPOMATIC. PT OFFERED LUNCH.
[2025-06-09 13:47] VITALS: BP 98/64
[2025-06-09 17:19] VITALS: BP 92/70
--- NOTE | 2025-06-09 18:50 | NUR ---
SHIFT SUMMARY PT A&OX4. PT REPORTS NO PAIN, NO CHEST PAIN. PT REPORTS SOB WHEN LAYING FLAT. PT ADMITTED DUE TO HYPOTENSION. PLAN IS FOR PT TO GO ON HOSPICE. PT ON COMFORT CARE OF TODAY. PT HAD CRITICAL LOW GLUCOSE THIS AM. DR. CALVIN NOTIFIED. PT HAS POOR APPETITE. PT ON SOFT AND BITE SIZED LEVEL 6 DIET. PT TAKES MEDS ONE AT A TIME WHOLE W WATER. PT 90 DEGREES UPRIGHT AT TIMES IN BED, NEW MEPILEX PLACED ON COCCYX AND SMALL MEPILEX ON SPINE DUE TO RED BONY PROMINENCES. PT ATTEMPTED TO USE BSC TODAY WITH TWO ASSIST AND WALKER. PT REPORTS TOO WEAK AND DIZZY TO AMBULATE. PT CONT OF URINE AND BM. PT USED BEDPAN AND HAD BM TODAY. COMFORT CARE ASSESSMENTS COMPLETE. PT CONT TO GET MIDODRINE FOR BP. PT IN BED, BED LOCKED, IN LOWEST POSITION, CALL LIGHT IN REACH. NOTE ON DOOR NOTES PLEASE CHECK WITH NURSE BEFORE ENTERING ROOM, PT WOULD LIKE TO REST. PT REPORTS WANTS TO REST.
[2025-06-10] MEDS ORDERED: Morphine Sulfate 4 MG/1 ML Injection IV PRN (04:00)
--- NOTE | 2025-06-10 05:49 | NUR ---
SHIFT SUMMARY: PT AOX4, EXTREMELY WEAK, ATTEMPTED TO TRANSFER TO CHAIR BUT PT IS UNABLE TO STAND EVEN WITH 2PA ATTEMPT UP WITH FWW AND GB. PT VERY ANXIOUS AND STARTED COMPLAINING ABOUT SHORTNESS OF BREATH. PLACED ON 2L FOR COMFORT. EDUCATED PT ON SOME COMFORT MEASURES AND HE WAS AGREEABLE TO TRYING SOME MEDICATION FOR AIR HUNGER, BUT THEN REFUSED ONCE ORDER WAS OBTAINED AND DRAWING UP. REQUESTS BED TO BE IN UPRIGHT POSITION, PT IN BED RESTING, BED IN LOWEST POSITION, CALL LIGHT IN REACH. CONTINUING CARE.
--- NOTE | 2025-06-10 07:52 | NUR ---
ASSUMED CARE OF PT- BEDSIDE REPORT COMPLETED WITH NIGHT RN. PT SLEEPING SOUNDLY AT THE TIME OF REPORT, HE APPEARS COMFORTABLE WITH NO S&S OF DISTRESS NOTED. PER REPORT THE PT HAS BEEN ANXIOUS AND PAINFULL. ORDER RECIEVED FOR IV MORPHINE BUT THE PT REFUSED IT, HE WAS ANXIOUS ABOUT TRYING A NEW MEDICINE. PT IS PALE AND A LITTLE JAUNDICED IN APPEARANCE, AND HE HAS HIS RIGHT FOOT OOB ON THE FLOOR. NIGHT RN SAID HE HAS BEEN UP MOST OF THE NIGHT, SO WE DID NOT ADJUST HIM TO ALLOW FOR SOME SLEEP. WILL ADJUST SOON IF HE DOESNT WAKE.
[2025-06-10] MEDS ORDERED: Morphine Sulfate 20 MG/1ML 1 ML Oral Syringe PO PRN (09:15)
[2025-06-10] MEDS ORDERED: ACET500 PO (12:48)
[2025-06-10] MEDS ORDERED: MIDO5 PO (12:49)
[2025-06-10] MEDS ORDERED: AQUAPHOR ITCH R28 GM TOP (12:50)
[2025-06-10] MEDS ORDERED: SODBIC650 PO (12:52)
[2025-06-10] MEDS ORDERED: MORP20L MM (12:52)
--- NOTE | 2025-06-10 17:16 | NUR ---
SHIFT SUMMARY- PT AND FAMILY WERE PROVIDED VERBAL AND WRITTEN DISCHARGE INSTRUCTIONS AND ACKNOWLEDGED UNDERSTANDING OF THEM. PT IV'S WERE DC'D PRIOR TO DISCHARGE. THEN PT ATTEMPTED TO TRANSFER TO THE WHEELCHAIR TO LEAVE AND HE WAS UNABLE TO DO MORE THAN GET TO THE EOB. HE KEPT SAYING "WAIT A MINUTE" HE SAT FOR 30 MINUTES LIKE THAT. STAFF USED THE SIT TO STAND TO TRANSFER TO THE CHAIR. PT WAS ABLE TO STAND STRAIGHT IN THE LIFT. ONCE IN THE CHAIR THE PT AGREED HE NEEDS MEDICAL TRANSPORT. CALLED CARE MANAGEMENT FOR [facility]OSPICE [facility]. DAUGHTER WAS AT THE BEDSIDE THROUGH ALL OF THIS. PT IS UNABLE TO TRANSFER TO THE CHAIR. TRANSPORT IS UNABLE TO BE ARRANGED THIS EVENING SO THE PT REMAINS HERE ON CC UNTIL TOMORROW MORNING. THE PT CONVEYED TO STAFF HIS DISPLEASURE. NOTIFIED DR HURLEY AND RECIEVED AN ORDER FOR NO IV ACCESS. SPOKE TO DR LIBERTY HARRINGTON IF THE PT BECOMES PANICKED AND SOB TONIGHT. SPOKE TO HIM TODAY ABOUT THE USE OF ROXANOL WHEN THESE EPISODES HAPPEN, HE IS AGREEABLE TO TRY IT WHN IT HAPPENS AGAIN. PT HAS NOTABLE MOTTLING OF THE BLE (MID THIGH DOWN AND BUE ELBOW DOWN.)
--- NOTE | 2025-06-10 22:44 | NUR ---
NURSING NOTE: PT INCREASINGLY MORE AGITATED AND ANXIOUS. PT TOLERATNG ROXANOL BUT STILL COMPLAINS OF AIRHUGER. MEDICATED WITH ATIVAN. PER EMR.
--- NOTE | 2025-06-11 05:16 | NUR ---
SHIFT SUMMARY: PT AOX4, CALLS APPROPRIATELY. VERY WEAK, COMPLAINING OF A LOT OF SOB ON EXERTION AND THEN GETS ANXIOUS AND STARTS EXPERIENCING AIR HUNGER. MEDICATED PER EMR. CONTINUES TO BE FIDGETY AND UNCOMFORTABLE, ASKING TO GET OUT OF THE BED EVEN THOUGH HE IS FAR TOO WEAK AND UNABLE TO STAND DESPITE ATTEMPTING A TWO PERSON ASSIST. PT BECAME AGITATED, WORKED UP, AND THEN SHORT OF BREATH. MEDICATED WITH ONE DOSE OF ATIVAN. PT TOLERATED WELL AND HAS SLEPT COMFORTABLY SINCE. PT TOLERATING MEDICATIONS WELL, BED IN LOWEST POSITION, CALL LIGHT IN REACH. CONTINUING CARE.
--- NOTE | 2025-06-11 07:25 | NUR ---
assumed care of pt- BEDSIDE REPORT COMPLETED WITH NIGHT RN. PT REPOSITIONED AND FULL LINNEN CHANGE COMPLETD AT THAT TIME. PT MOANS WHEN STAFF SPEAK TO HIM BUT DOES NOT FORM WORDS. HE IS PALE AND COOL TO THE TOUCH. MODDELING APPEARED IMPROVED, AFTER BED CHANGE IT HAD RETURNED IT WAS YESTERDAY EVENING. PT HOWEVER, DOES NOT APPEAR TO BE IN ANY DISTRESS. WILL SPEAK TO DR AND PALLIATIVE CARE SOON THEY ARRIVE.
[2025-06-11] MEDS ORDERED: Morphine Sulfate 20 MG/1ML 1 ML Oral Syringe PO PRN (09:50)
--- NOTE | 2025-06-11 15:18 | NUR ---
VERBAL ORDERS OBTAINED FROM PROVIDER TO D/C ORAL MEDICATIONS. TYLENOL CHANGED TO SUPPOSITORY FORM INSTEAD OF PO. BEDSIDE RN UPDATED WITH CHANGES.
--- NOTE | 2025-06-11 16:24 | NUR ---
COMFORT CARE NOTE- PT RESTING AND APPEARS COMFORTABLE. SLIGHT REPOSITION TO CHANGE THE PRESSURE ON HIS BOTTOM. RESP E&U ON 3L VIA NC. DAUGHTER AT THE BEDSIDE, OTHER DAUGHTER AND GRANDKIDS ARE ON THEIR WAY AND SHOULD ARRIVE BY AROUND 5 PM. PT WAS TOLD THEY ARE ON THEIR WAY. HE GIVES SOME MOANING RESPONSES THAT SEEM TO BE MEANINGFUL AT THIS TIME. NO S&S OF PAIN OR RESP DISTESS NOTED.
--- NOTE | 2025-06-11 16:46 | NUR ---
FAMILY SELECTED [facility] FOR MORTUARY- PT DAUGHTER IS AT THE BEDSIDE AND WAS PROVIDED A LIST OF LOCAL MORTUARYS. SHE HAS ELECTED [facility] STATING THEY WILL HAVE SERVICES AT THE [facility] SO ALL THEY NEED IS THE CREMATION SERVICES.
--- NOTE | 2025-06-11 18:56 | NUR ---
SHIFT SUMMARY- PT APPEARS RELAXED WITH RESP E&U AT THIS TIME. HE IS PALE AND HAS HAD NO OUTPUT SINCE THE START OF THE SHIFT. PT APEARS CMFORTABLE AND WAS ONLY MEDICATED ONCE WITH MEDS FOR PAIN SYMPTOMS. MULTIPLE FAMILY AND FRIENDS ARE AT THE BEDSIDE. LEFT A MESSAGE WITH SPIRITUAL CARE THE PT IS A JAIN AND WOULD PROBABLY APPRECIATE A VISIT. FAMILY HAS CHOSEN [facility] FOR SERVICES.
--- NOTE | 2025-06-12 05:52 | NUR ---
NURSING NOTE: PT AOX0 RESPONDS TO SIMPLE QUESTIONS WITH SOME SHAKES AND GRUNTS AT START OF SHIFT, SLOWLY MORE AND MORE LESS RESPONSIVE NIGHT PROGRESSED. PT BREATHING SLOWED. REPOSITONED THROUGHOUT THE NIGHT. WENT IN ~0525 PT WAS NOT BREATHING. LUNG AND HEART SOUNDS AUSCULTATED. CHARGE NURSE NOTIFIED. TOD: 529. DAUGHTER ALMA DELIA NOTIFIED. STATED SOME FAMILY WAS GOING TO COME TO SAY GOODBYES SINCE HE WILL BE CREMATED. CONTINUING CARE.
--- NOTE | 2025-06-12 10:28 | NUR ---
"Spiritual Care | EOL Pt. had passed. Daughter is at bedside and welcomes my visit. Other family arrive. Facilitate a life review and Prayer is made for the family. Daughter verbalizes that there is another family member en route. Family has already chosen [facility] for the Pt. Family verbalized gratitude for the spiritual care support. Attending nurse and Nurse [employer] are notified."
--- NOTE | 2025-06-12 14:01 | NUR ---
PATIENT PRIOR TO THIS SHIFT. FAMILY REMAINED IN THE ROOM UNTIL ABOUT 10:30. ROOM CHECK AND BELONGINGS SENT WITH FAMILY. DAUGHTER STATED THAT SHE TOOK MOST OF HIS BELONGINGS HOME WITH HIM. BEEDED BRACELET REMAINED IN PATIENTS HAND AND TO BE CREMATED WITH HIM. PATIENT IN PERSONAL CLOTHING ITEMS AND FAMILY WANTING HIM TO REMAIN IN THEM. TELEPHONE NUMBERS VERIFIED WITH FAMILY PRIOR TO DEPARTING. FAMILY EDUCATED THAT MORTUARY WILL CALL MOST LIKELY TO ARRANGE MEETING. OTHER DAUGHTER CALLED AFTER DEPARTURE REGARDING WATCH. REMINDED HER THAT HER SISTER HAD TAKEN MOST BELONGINGS HOME LAST EVENING AND THERE WAS NO WATCH ON THE PATIENT WHEN WE CHECKED FOR JEWELRY WITH FAMILY. PATIENT IS AN EYE DONOR. ICE APPLIED AFTER FAMILY LEFT. CONTINUE TO WAIT FOR PROCURMENT.
== END 2025-06-12 05:30 | DRG 314 ==
LOC: ER 15:47 → ERHOLD 18:32 → ICUE 18:32 → MEDS 18:32 → ICUE 22:00 → MEDS 06-06 12:50 → ENPENDDIS 06-10 11:57 → MEDS 06-12 05:30
PROVIDERS: Internal Medicine; ADMIT Internal Medicine
PROC: 0W9B3ZZ Drainage of Left Pleural Cavity, Percutaneous Approach (ICD-10-PCS; principal; 2025-06-04)
PROC: 0T9B70Z Drainage of Bladder with Drainage Device, Via Natural or Artificial Opening (ICD-10-PCS; 2025-06-04)
PROC: 30233J1 Transfusion of Nonautologous Serum Albumin into Peripheral Vein, Percutaneous Approach (ICD-10-PCS; 2025-06-04)
PROC: 3E03329 Introduction of Other Anti-infective into Peripheral Vein, Percutaneous Approach (ICD-10-PCS; 2025-06-04)
PROC: 30233N1 Transfusion of Nonautologous Red Blood Cells into Peripheral Vein, Percutaneous Approach (ICD-10-PCS; 2025-06-04)
DX: I95.9 Hypotension, unspecified (principal); E43 Unspecified severe protein-calorie malnutrition; J18.9 Pneumonia, unspecified organism; C64.2 Malignant neoplasm of left kidney, except renal pelvis; E87.20 Acidosis, unspecified; R64 Cachexia; Z68.1 Body mass index [BMI] 19.9 or less, adult; C78.7 Secondary malignant neoplasm of liver and intrahepatic bile duct; R04.2 Hemoptysis; C78.89 Secondary malignant neoplasm of other digestive organs; C79.70 Secondary malignant neoplasm of unspecified adrenal gland; Z66 Do not resuscitate; Z51.5 Encounter for palliative care; E88.09 Other disorders of plasma-protein metabolism, not elsewhere classified; R54 Age-related physical debility; I27.20 Pulmonary hypertension, unspecified; E86.0 Dehydration; D69.6 Thrombocytopenia, unspecified; D50.9 Iron deficiency anemia, unspecified; K12.0 Recurrent oral aphthae; R33.8 Other retention of urine; R16.0 Hepatomegaly, not elsewhere classified; Z88.5 Allergy status to narcotic agent; Z88.6 Allergy status to analgesic agent
CPT/HCPCS: 32555; 36415; 36430; 51702; 71045; 71260; 74177; 80048; 80053; 81001; 82042; 82105; 82533; 82728; 82945; 82947; 83540; 83550; 83605; 83615; 83735; 83880; 84100; 84145; 84157; 84484; 85014; 85018; 85025; 85045; 85610; 86850; 86900; 86901; 86920; 86923; 87070; 87086; 87205; 87637; 88108; 88305; 88341; 88342; 89051; 93306; 94762; 97162; 97530; 99285-25; A9270; J1938; J2405; J2543; J2765; J3480; J7030; J7050; P9016; P9047; Q9967

== ENCOUNTER → 2025-06-03 | Outpatient (CLI) | payer OTHER ==
[~2025-06-03] MED LIST: ACET500 PO; AQUAPHOR ITCH R28 GM TOP; MIDO5 PO; MORP20L MM; SODBIC650 PO
[2025-06-03 14:37] LABS: BASOPHILS ABSOLUTE AUTO 0.04 K/mm3 (0.00-0.23); BASOPHILS PERCENT AUTO 1 % (0-2); EOSINOPHILS ABSOLUTE AUTO 0.03 K/mm3 (0.00-0.68); EOSINOPHILS PERCENT AUTO 1 % (0-6); Hematocrit 23.6 % (37.0-53.0); Hemoglobin 7.3 g/dL (13.5-17.5); Mean Corpuscular HGB Conc 30.9 g/dL (31.5-36.5); Mean Corpuscular Volume 84 fL (80-100); NRBC ABSOLUTE 0.00 K/mm3 (0.00-0.02); NRBC Auto 0.0 /100 WBC (0.0-0.2); RDW Coefficient Variation 19.6 % (11.7-14.2); RDW Standard Deviation 59.0 fL (35.1-46.3)
[2025-06-03 14:42] LABS: Alanine Aminotransfer (ALT/SGP 14.0 U/L (12-78); Albumin, Blood 1.7 g/dL (3.4-5.0); Albumin/Globulin Ratio 0.4 (0.8-1.8); Anion Gap 14.0 mmol/L (3-11); Aspartate Aminotrans (AST/SGOT 220.0 U/L (12-37); Bilirubin, Total 1.7 mg/dL (0.1-1.0); Blood Urea Nitrogen 21.0 mg/dL (8-24); CO2, Blood 26.0 mmol/L (21-32); Calcium, Blood 8.8 mg/dL (8.5-10.1); Chloride, Blood 94.0 mmol/L (98-108); Creatinine, Blood 1.19 mg/dL (0.60-1.20); Globulin, Blood 4.7 g/dL (2.2-4.0); Glucose, Blood 79.0 mg/dL (70-99); Potassium, Blood 4.0 mmol/L (3.5-5.5); Sodium, Blood 130.0 mmol/L (136-145); Total Protein, Blood 6.4 g/dL (6.4-8.2)
[2025-06-03 14:56] LABS: IMMATURE GRAN ABSOLUTE AUTO 0.07 K/mm3 (0.00-0.10); IMMATURE GRAN PERCENT AUTO 1 % (0-1); LYMPHOCYTES ABSOLUTE AUTO 1.49 K/mm3 (0.84-5.20); LYMPHOCYTES PERCENT AUTO 30 % (21-46); MONOCYTES ABSOLUTE AUTO 0.28 K/mm3 (0.16-1.47); MONOCYTES PERCENT AUTO 6 % (4-13); NEUTROPHILS ABSOLUTE AUTO 3.05 K/mm3 (1.96-9.15); NEUTROPHILS PERCENT AUTO 62 % (41-73); Platelet Count 73 K/mm3 (150-400)
[2025-06-03 19:10] LABS: PSA, %Free 18.3 %; PSA, Free 0.044 ng/mL; Prostate Specific Antigen 0.240 ng/mL (0.000-4.000)
== END ==
LOC: LAB SHORT 14:17 → LAB 14:17
PROVIDERS: Physician Assistant
DX: R53.83 Other fatigue (principal); R05.9 Cough, unspecified; N39.0 Urinary tract infection, site not specified; R11.2 Nausea with vomiting, unspecified
CPT/HCPCS: 80053; 83605; 83690; 84153; 84154; 85025; 87040; 87070; 87077; 87086; 87102; 87205